=== PATIENT | female | born 1940 | race Caucasian/White ===

== ENCOUNTER 2020-10-18 08:43 | Inpatient (IN) | payer OTHER ==
[~2020-10-18] VITALS: Ht 165.1 cm; Wt 113.5 kg
[2020-10-18 09:51] LABS: Basophils # (auto) 0 10 ^3/uL (0-0.2); Basophils % (auto) 0.6 % (0.0-2.0); Eosinophils # (auto) 0 10 ^3/uL (0-0.8); Eosinophils % (auto) 0.3 % (0.0-7.0); Hematocrit 38.4 % (36.0-46.0); Hemoglobin 13.1 g/dL (12.2-16.2); Lymphocytes # (auto) 1.1 10 ^3/uL (0.4-5.4); Lymphocytes % (auto) 15.1 % (10.0-50.0); Monocytes # (auto) 0.4 10 ^3/uL (0-1.3); Neutrophils # (auto) 5.9 10 ^3/uL (1.6-8.6); Red Blood Cells 4.08 10^6/uL (4.0-5.20); Red Cell Distribution Width 12.9 % (11.8-14.3); White Blood Cell 7.5 10^3/uL (4.4-10.8)
[2020-10-18 10:10] LABS: Urine WBC None Seen /hpf (0 - 5)
[2020-10-18 10:21] LABS: Urine Bacteria NONE SEEN /hpf (None Seen); Urine Blood Negative /uL (Negative); Urine Specific Gravity 1.011 (1.001-1.035)
[2020-10-18 10:28] LABS: Alanine Aminotransferase 22 U/L (13-56); Albumin 3.7 g/dL (3.4-5.0); Anion Gap 8 (5-15); Aspartate Aminotransferase 17 U/L (15-37); Blood Urea Nitrogen 13 mg/dL (7-18); Calcium 9.2 mg/dL (8.5-10.1); Carbon Dioxide 22 mmol/L (21-32); Chloride 107 mmol/L (98-107); Glucose 111 mg/dL (74-106); Potassium 3.9 mmol/L (3.5-5.1); Sodium 137 mmol/L (136-145)
[2020-10-18] MEDS ORDERED: SODIUM CHLORIDE 0.9% 500 ML IV ONE (10:30)
[2020-10-18 10:33] LABS: Alkaline Phosphatase 88 U/L (45-117); BUN/Creatinine Ratio 24.1; Bilirubin, Total 0.8 mg/dL (0.2-1.0); GFR African American 140 mL/min; GFR Non-African American 116 mL/min; Total Protein 6.9 g/dL (6.4-8.2)
[2020-10-18] MEDS ORDERED: ONDANSETRON HCL 4 MG/2 ML VIAL IV ONE (11:45)
[2020-10-18] MEDS ORDERED: ONDANSETRON HCL 4 MG/2 ML VIAL IV PRN (14:45)
[2020-10-18] MEDS ORDERED: NITROGLYCERIN 0.4 MG SL TAB SL PRN (14:45)
[2020-10-18] MEDS ORDERED: HYDROcodone-ACET 5/325MG TAB PO PRN (14:45)
[2020-10-18] MEDS ORDERED: MORPHINE SULFATE INJECTION 2 MG/ML SYRG IV PRN ×2 (14:45)
[2020-10-18 15:33] LABS: Cholesterol 179 mg/dL (< 200); HDL Cholesterol 76 mg/dL (40-59); LDL Cholesterol 88 mg/dL (< 100); Triglycerides 85 mg/dL (< 150)
[2020-10-18] MEDS ORDERED: MET25T PO (17:11)
[2020-10-18] MEDS ORDERED: ACET1CAP14 PO (17:17)
[2020-10-18 18:44] VITALS: BP 154/58
[2020-10-18] MEDS: ACETAMINOPHEN 500 MG TAB PO PRN (21:00)
[2020-10-18 22:00] VITALS: BP 150/65
[2020-10-18] MEDS ORDERED: ATORVASTATIN 20 MG TAB PO SCH (22:00)
[2020-10-18 22:18] VITALS: BP 150/65
[2020-10-18] MEDS: METOPROLOL TARTRATE 25 MG TAB PO SCH (22:29)
[2020-10-19 05:09] VITALS: BP 114/48
[2020-10-19 08:00] VITALS: BP 138/57
[2020-10-19] MEDS ORDERED: ASPirin 81 mg TAB PO SCH (10:00)
[2020-10-19] MEDS: METOPROLOL TARTRATE 25 MG TAB PO SCH ×2 (10:00→22:16)
[2020-10-19] MEDS: FAMOTIDINE 20 MG TAB PO SCH (10:03)
[2020-10-19 16:00] VITALS: BP 152/64
[2020-10-19] MEDS ORDERED: hydrALAZINE HCL 20 MG/ML VL IV PRN (16:30)
[2020-10-19] MEDS ORDERED: LORazepam 0.5 MG TAB PO PRN (20:30)
[2020-10-19] MEDS: ATORVASTATIN 20 MG TAB PO SCH (22:00)
[2020-10-19] MEDS: APIXABAN 5 MG TAB PO SCH (22:15)
[2020-10-20 05:00] VITALS: BP 137/65
[2020-10-20 08:50] VITALS: BP 142/70
[2020-10-20] MEDS ORDERED: ENOXAPARIN SOD 40 MG/0.4 ML SYRINGE SC SCH (10:00)
[2020-10-20] MEDS: METOPROLOL TARTRATE 25 MG TAB PO SCH ×2 (10:44→21:25)
[2020-10-20] MEDS: APIXABAN 5 MG TAB PO SCH ×2 (10:44→21:25)
[2020-10-20] MEDS: FAMOTIDINE 20 MG TAB PO SCH (10:45)
[2020-10-20 12:50] VITALS: BP 167/82
[2020-10-20 16:40] VITALS: BP 160/67
[2020-10-20] MEDS: ATORVASTATIN 20 MG TAB PO SCH (21:22)
[2020-10-20 22:00] VITALS: BP 128/57
[2020-10-21 05:00] VITALS: BP 130/50
[2020-10-21 07:11] LABS: Basophils # (auto) 0 10 ^3/uL (0-0.2); Basophils % (auto) 0.9 % (0.0-2.0); Eosinophils # (auto) 0.1 10 ^3/uL (0-0.8); Eosinophils % (auto) 1.1 % (0.0-7.0); Hematocrit 39.9 % (36.0-46.0); Hemoglobin 13.6 g/dL (12.2-16.2); Lymphocytes # (auto) 1.3 10 ^3/uL (0.4-5.4); Lymphocytes % (auto) 25.3 % (10.0-50.0); Mean Corpuscular Hgb Conc. 34.1 g/dL (32.0-36.0); Mean Corpuscular Volume 93.8 fL (80.0-100.0); Monocytes # (auto) 0.4 10 ^3/uL (0-1.3); Monocytes % (auto) 7.9 % (0.0-12.0); Neutrophils # (auto) 3.4 10 ^3/uL (1.6-8.6); Neutrophils % (auto) 64.8 % (37.0-80.0); Red Blood Cells 4.26 10^6/uL (4.0-5.20); Red Cell Distribution Width 13.2 % (11.8-14.3); White Blood Cell 5.2 10^3/uL (4.4-10.8)
[2020-10-21 07:21] LABS: Potassium 3.9 mmol/L (3.5-5.1)
[2020-10-21 07:23] VITALS: BP 134/50
[2020-10-21 07:24] LABS: BUN/Creatinine Ratio 16.7; Calcium 9.9 mg/dL (8.5-10.1)
[2020-10-21] MEDS: APIXABAN 5 MG TAB PO SCH ×2 (09:59→20:54)
[2020-10-21] MEDS: FAMOTIDINE 20 MG TAB PO SCH (10:00)
[2020-10-21] MEDS: METOPROLOL TARTRATE 25 MG TAB PO SCH ×2 (10:00→20:53)
[2020-10-21 12:44] VITALS: BP 132/65
[2020-10-21] MEDS: ATORVASTATIN 20 MG TAB PO SCH (20:53)
[2020-10-21 21:07] VITALS: BP 130/58
[2020-10-22 05:14] VITALS: BP 148/70
[2020-10-22 07:39] VITALS: BP 146/77
[2020-10-22] MEDS: FAMOTIDINE 20 MG TAB PO SCH (10:00)
[2020-10-22] MEDS: METOPROLOL TARTRATE 25 MG TAB PO SCH ×2 (10:00→21:39)
[2020-10-22] MEDS: APIXABAN 5 MG TAB PO SCH ×2 (10:30→21:39)
[2020-10-22 13:13] VITALS: BP 141/66
[2020-10-22 16:10] VITALS: BP 137/68
[2020-10-22] MEDS: DOCUSATE SOD 100 MG CAP PO SCH (19:29)
[2020-10-22] MEDS: ACETAMINOPHEN 500 MG TAB PO PRN (20:42)
[2020-10-22] MEDS: SENNA 8.6 MG TAB PO SCH (21:39)
[2020-10-22] MEDS: ATORVASTATIN 20 MG TAB PO SCH (21:40)
[2020-10-22 22:00] VITALS: BP 141/72
[2020-10-23 05:00] VITALS: BP 125/56
[2020-10-23 09:00] VITALS: BP 143/66
[2020-10-23] MEDS: FAMOTIDINE 20 MG TAB PO SCH (10:00)
[2020-10-23] MEDS: DOCUSATE SOD 100 MG CAP PO SCH ×2 (10:00→22:00)
[2020-10-23] MEDS: APIXABAN 5 MG TAB PO SCH ×2 (10:29→22:16)
[2020-10-23] MEDS: METOPROLOL TARTRATE 25 MG TAB PO SCH ×2 (10:29→22:17)
[2020-10-23 13:00] VITALS: BP 145/84
[2020-10-23 22:00] VITALS: BP 144/69
[2020-10-23] MEDS: ATORVASTATIN 20 MG TAB PO SCH (22:00)
[2020-10-23] MEDS: SENNA 8.6 MG TAB PO SCH (22:00)
[2020-10-24 05:00] VITALS: BP 133/68
[2020-10-24 06:06] LABS: Basophils # (auto) 0.1 10 ^3/uL (0-0.2); Eosinophils # (auto) 0.1 10 ^3/uL (0-0.8); Eosinophils % (auto) 1.3 % (0.0-7.0); Hematocrit 38.1 % (36.0-46.0); Hemoglobin 13.1 g/dL (12.2-16.2); Lymphocytes # (auto) 1.4 10 ^3/uL (0.4-5.4); Mean Corpuscular Hemoglobin 32.1 pg (28.0-32.0); Mean Corpuscular Hgb Conc. 34.3 g/dL (32.0-36.0); Mean Corpuscular Volume 93.5 fL (80.0-100.0); Monocytes # (auto) 0.4 10 ^3/uL (0-1.3); Monocytes % (auto) 8.6 % (0.0-12.0); Neutrophils # (auto) 3.1 10 ^3/uL (1.6-8.6); Neutrophils % (auto) 61.1 % (37.0-80.0); Red Blood Cells 4.08 10^6/uL (4.0-5.20); Red Cell Distribution Width 13.1 % (11.8-14.3); White Blood Cell 5.1 10^3/uL (4.4-10.8)
[2020-10-24 06:27] LABS: Calcium 9.3 mg/dL (8.5-10.1); Potassium 4.3 mmol/L (3.5-5.1)
[2020-10-24 06:29] LABS: BUN/Creatinine Ratio 23.3; Magnesium 2.2 mg/dL (1.6-2.6)
[2020-10-24 09:00] VITALS: BP 147/81
[2020-10-24] MEDS: DOCUSATE SOD 100 MG CAP PO SCH ×2 (10:00→20:57)
[2020-10-24] MEDS: APIXABAN 5 MG TAB PO SCH ×2 (10:31→21:24)
[2020-10-24] MEDS: FAMOTIDINE 20 MG TAB PO SCH (10:32)
[2020-10-24] MEDS: METOPROLOL TARTRATE 25 MG TAB PO SCH ×2 (10:32→21:24)
[2020-10-24] MEDS: ACETAMINOPHEN 500 MG TAB PO PRN (12:12)
[2020-10-24 13:00] VITALS: BP 124/67
[2020-10-24 17:00] VITALS: BP 135/82
[2020-10-24] MEDS: ATORVASTATIN 20 MG TAB PO SCH (20:57)
[2020-10-24] MEDS: SENNA 8.6 MG TAB PO SCH (20:57)
[2020-10-24 22:00] VITALS: BP 133/60
[2020-10-25 05:00] VITALS: BP 141/72
[2020-10-25 09:00] VITALS: BP 137/61
[2020-10-25] MEDS: METOPROLOL TARTRATE 25 MG TAB PO SCH (10:00)
[2020-10-25] MEDS: FAMOTIDINE 20 MG TAB PO SCH (10:00)
[2020-10-25] MEDS: DOCUSATE SOD 100 MG CAP PO SCH (10:00)
== END 2020-10-25 13:08 | disposition home health service (06) | DRG 65 ==
LOC: ER 08:43 → EDBD 08:43 → TELE 14:36 → TELE-EAST 18:18
PROVIDERS: ADMIT Nurse Practitioner Acute Care; ATTEND Internal Medicine
DX: I63.9 Cerebral infarction, unspecified (principal); R64 Cachexia; D68.59 Other primary thrombophilia; Z68.1 Body mass index [BMI] 19.9 or less, adult; I48.0 Paroxysmal atrial fibrillation; E78.5 Hyperlipidemia, unspecified; F41.9 Anxiety disorder, unspecified; H53.462 Homonymous bilateral field defects, left side; K59.00 Constipation, unspecified; I10 Essential (primary) hypertension; F17.200 Nicotine dependence, unspecified, uncomplicated; Z20.822 Contact with and (suspected) exposure to COVID-19; R44.1 Visual hallucinations; Z79.01 Long term (current) use of anticoagulants; Z79.899 Other long term (current) drug therapy; Z82.49 Family history of ischemic heart disease and other diseases of the circulatory system; Z86.73 Personal history of transient ischemic attack (TIA), and cerebral infarction without residual deficits; Z90.710 Acquired absence of both cervix and uterus; Z88.1 Allergy status to other antibiotic agents; Z88.0 Allergy status to penicillin
CPT/HCPCS: 36415; 70450; 70551; 71045; 80048; 80053; 80061; 81001; 82565; 82962; 83735; 83880; 84484; 85025; 87426; 93005; 93306; 93886; 96361; 96374; 97110; 97116; 97163; 97530; G0378; J2405